=== PATIENT | female | born 1940 | race Caucasian/White ===

== ENCOUNTER → 2018-12-26 | Outpatient (CLI) | payer OTHER, MEDICARE ==
[~2018-12-26] MED LIST: BACTRIM DS TAB1 EACH PO; MEDROLDOSEPACK PO; NOHOMEMEDICATIONS
--- NOTE | ~2018-12-26 | PFR ---
[facility] [place] [address] PULMONARY FUNCTION REPORT Name: HANNAHVINCENZO Room #: REG [facility].#: [id number] ������������������ Admission: 12/26/18 ������������������ Attend Phys: CHI Walker Discharge: ������������������ Date of : 36 Report #: [id number] THIS REPORT FOR: //name// COPIES FOR: AGE:������ 78 SEX/RACE:� F/C >> SPIROMETRY: (BTPS) Height: 54 in cm Weight: 132 lbs kg Exam Date: 12/26/18 PRE-RX POST-RX PRED BEST %PRED BEST %PRED %CHG FVC LITERS . 1.44 . 1.52 . 106 . 1.78 . 124 . 17 FEV1 LITERS . 0.87 . 0.50 . 57 . 0.59 . 68 . 20 FEV1/FVC % . 71 . 33 . 46 . 33 . 47 . 2 FAA95-25% L/Sec . 1.39 . 0.13 . 9 . 0.18 . 13 . 44 PEF L/SEC . 3.98 . 1.67 . 42 . 1.66 . 42 . -1 FEF50/FIF50 UNITLESS . . 0.15 . . 0.18 . . 25 >> LUNG VOLUMES (BTPS) PRE-RX POST-RX PRED AVG %PRED AVG %PRED %CHG VC Liters . 1.44 . 1.52 . 106 . . . TLC Liters . 2.72 . 5.16 . 189 . . . RV Liters . 1.21 . 3.64 . 301 . . . RV/TLC % . 43 . 71 . 164 . . . FRC PL Liters . . . . . . FRC N2 Liters . 1.53 . 3.69 . 241 . . . ERV Liters . 0.46 . 0.05 . 11 . . . IC Liters . 0.93 . 0.90 . 97 . . . >> DIFFUSION DLCO ml/Min/mmHg . 13.6 . 4.9 . 36 . . . DL Michael ml/Min/mmHg . . . . . . DLCO/VA ml/Min/mmHg . 3.30 . 2.54 . 77 . . . VA Liters . . 1.94 . . . . COMMENTS: [address] [address] PULMONARY FUNCTION REPORT Name: VINCENOZ YOUNG Room #: REG [facility] Lewis#: [id number] ������������������ Admission: 12/26/18 ������������������ Attend Phys: CHI Walker Discharge: ������������������ Date of : 36 Report #: [id number] COMMENTS: ��������������������������������������������� ���������������������������������������� By: ��������������������������������������������� D: /HAN
--- NOTE | 2019-01-07 18:36 | PFR/MVV ---
[facility] [place] [address] PULMONARY FUNCTION MVV/REPORT Name: MIKHAIL YOUNGUREEN Room #: REG [facility]#: [id number] ������������������ Admission: 12/26/18 ������������������ Attend Phys: CHI Walker Discharge: ������������������ Date of : 36 Report #: [id number] THIS REPORT FOR: //name// >> SPIROMETRY: (BTPS) Height: in cm Weight: lbs kg Exam Date: PRE-RX POST-RX PRED BEST %PRED BEST %PRED %CHG FVC LITERS . . . . . . FEV1 LITERS . . . . . . FEV1/FVC % . . . . . . EEP72-34% L/Sec . . . . . . PEF L/SEC . . . . . . FEF50/FIF50 UNITLESS . . . . . . MVV L/Min . . . f 1/Min . . . >> LUNG VOLUMES: (BTPS) PRE-RX POST-RX PRED AVG %PRED AVG %PRED %CHG VC Liters . . . . . . TLC Liters . . . . . . RV Liters . . . . . . RV/TLC % . . . . . . FRC PL Liters . . . . . . FRC N2 Liters . . . . . . ERV Liters . . . . . . IC Liters . . . . . . >> DIFFUSION: DLCO ml/Min/mmHg . . . . . . DL Michael ml/Min/mmHg . . . . . . DLCO/VA ml/Min/mmHg . . . . . . VA Liters . . . . . . COMMENTS: COMMENTS: >> RESISTANCE: [facility] [address] [place] [address] PULMONARY FUNCTION MVV/REPORT Name: MIKHAIL YOUNGUREEN Room #: REG [facility]#: [id number] ������������������ Admission: 12/26/18 ������������������ Attend Phys: CHI Walker Discharge: ������������������ Date of : 36 Report #: [id number] PRE-RX PRED AVG %PRED Raw Total cmH20/L/Sec . . . Raw Insp cmH20/L/Sec . . . Raw Exp cmH20/L/Sec . . . Raw cmH20/L/Sec . . . Gaw L/Sec/cmH20 . . . sRaw cmH20 Sec . . . sGaw l/cmH20 Sec . . . Vtq Liters . . . # = OUTSIDE 95% CONFIDENCE INTERVAL CALIBRATION: PRED: 3.00 ACTUAL: EXP 3.01 INSP 3.02 [facility]-OL10- [facility]-- [id number] >> INTERPRETATION/IMPRESSION: CC: Johanne Torresgillian Johanne Torresgillian CHI Yadav DATE OF SERVICE: 01/06/2019 PULMONARY FUNCTION TEST Spirometric examination revealed moderate airflow obstruction. There was significant bronchodilator response. Hyperinflation is present with a total lung capacity measuring 189% of predicted. Diffusion capacity is severely reduced. When corrected for alveolar volume, it is normal. Flow volume loop is consistent with severe airflow obstruction. IMPRESSION: Severe obstructive ventilatory defect, hyperinflation suggest emphysema in type. Reversible airways noted. Diffusion capacity is markedly reduced. Clinical correlation recommended. ��������������������������������������������� <ELECTRONICALLY SIGNED> ���������������������������������������� By: Sree Alicia MD ��������������������������������������������� 01/07/19 1836 Sree Alicia MD /nt
== END ==
LOC: PUL 08:49
DX: R06.02 Shortness of breath (principal); Z85.118 Personal history of other malignant neoplasm of bronchus and lung; Z87.891 Personal history of nicotine dependence